=== PATIENT | female | born 1940 | race Caucasian/White ===

== ENCOUNTER → 2017-05-17 | Outpatient (CLI) | payer MEDICARE, OTHER | LOC: CARL-LAB 09:28 | DX: I48.91 Unspecified atrial fibrillation (principal); Z79.01 Long term (current) use of anticoagulants; Z51.81 Encounter for therapeutic drug level monitoring ==

== ENCOUNTER → 2017-06-27 | Outpatient (CLI) | payer MEDICARE, OTHER ==
[~2017-06-27] MED LIST: ADULT LOW DOSE81 MG; DIASTAT ACUDIAL10 MG; IRON90 MG; LOSARTAN POTASS25 MG; METFORMIN HYDR850 MG; OMEPRAZOLE5 GM; PHARMASSURE FO0.4 MG; PRAVACHOL40 M1; QUIN B STRONG1 EACH; TRIAMTERENE/HCT1 TA2; VITAMIN D400 UNI1; WARFARIN SOD5 MG
== END ==
LOC: CARL-LAB 10:11
DX: I48.91 Unspecified atrial fibrillation (principal); Z79.01 Long term (current) use of anticoagulants; Z51.81 Encounter for therapeutic drug level monitoring

== ENCOUNTER → 2017-09-19 | Outpatient (CLI) | payer MEDICARE, OTHER ==
[~2017-09-19] MED LIST changes: +METOPROLOL SUCC25 M1
== END ==
LOC: CARL-LAB 07:11
DX: I48.91 Unspecified atrial fibrillation (principal); Z79.01 Long term (current) use of anticoagulants; Z51.81 Encounter for therapeutic drug level monitoring